=== PATIENT | female | born 1975 | race Caucasian/White ===

== ENCOUNTER → 2024-03-22 | Outpatient (CLI) | payer BC, MEDICAID, SELFPAY ==
--- NOTE | 2024-03-22 16:45 | XR_ITS ---
Examination: MRI brain without intravenous contrast. Date and time of exam: March 22, 2024 1750 hrs. Comparison December 25, 2018 Indications: Episodes of dizziness numbness in the left side of the body and voluntary movement 6 years worse this month Technique: Multiple axial and sagittal images of the brain obtained. Siemens high-resolution 1.5 Suzan short bore scanners utilized. Sagittal sections, T1-weighted, TR 500, TE 14, are performed. Axial sections proton-density and T2-weighted have been obtained. Inversion recovery axial images, TR 9, 260, TE 111, TI 2500. Diffusion weighted images, axial sections, TR 4800, TE 128, B value 1000 Axial sections, ADC map, TR 4800, TE 128 Findings: Enlargement of the sella turcica is not present. The optic chiasm and infundibular are not remarkable. Prepontine and interpeduncular cisterns are not enlarged. There is no localized enlargement of the medulla or alex. Fourth ventricle and cerebellar tonsils appear normal in position. No subacute area of hemorrhage density is seen. Mass in the cerebellopontine angle region is not evident. Globes symmetrical. Orbital musculature including medial lateral rectus muscles do not exhibit abnormality. Diffusion-weighted images demonstrate 3 mm focus restricted diffusion right cerebellar hemisphere diffusion image 7. Increased white matter signal again noted, scattered punctate foci increased signal including in the right cerebellar hemisphere and white matter frontal parietal lobes Mass effect upon the ventricular system is not identified. Impression: There remains punctate foci increased signal in the white matter consistent with demyelinating disease
== END | disposition home or self-care (01) ==
PROVIDERS: PCP Physician Assistant; Referring Provider Physician Assistant; Visit Provider Physician Assistant
DX: R90.82 White matter disease, unspecified (principal)
CPT/HCPCS: 70551

== ENCOUNTER 2024-09-13 13:15 | Outpatient (AMB) | payer BC, MEDICAID, SELFPAY ==
--- NOTE | 2024-09-13 13:22 | GYNCLNT_ITS ---
Vital Signs 09/13/24 13:30 Height 1.68 m Height Method Stated Weight 137.042 kg Weight Measurement Method Standing Scale BMI 48.7 BP 116/82 Blood Pressure Source Automatic Cuff Blood Pressure Location Right Upper Arm Position Sitting Respiration 18 Pulse 71 Pulse Source Monitor Temp 98.5 F Temp Source Temporal Artery Scan Pulse Oximetry (%) 96 Oxygen Delivery Method Room Air Allergies/Home Meds Allergies & Medications Allergies Sulfa (Sulfonamide Antibiotics) Allergy (Unknown, Verified 09/13/24 13:22) RASH Penicillins Adverse Reaction (Intermediate, Verified 09/13/24 13:22) UNABLE TO BREATH Medication Reconciliation inhalational spacing device (Aerochamber MV spacer) #1 ea 02/18/19 [Rx Confirmed 09/13/24] metoprolol succinate 100 mg tablet,extended release 24 hr 100 mg PO QDAY 08/21/20 [History Confirmed 09/13/24] amlodipine 10 mg tablet 10 mg PO QDAY 09/29/23 [History Confirmed 09/13/24] trimethoprim 100 mg tablet 100 mg PO QDAY 09/29/23 [History Confirmed 09/13/24] rivaroxaban 20 mg tablet (Xarelto) 20 mg PO QDAY 09/19/24 [History] Intake Visit Data Collection New Patient or Established: Established Patient (seen at [facility] within 3 years) Reason for Visit:: REF PERIMENOPAUSAL Seen by Clinical Staff ONLY (RN/MA): No [employer]ed [employer] Boards Laminator Required: No Do You Feel Safe at Home: Yes Authorities Contacted: N/A PCP or OBGYN visit in last 3 months: No Hx Now: No Last menstrual period: 05/23/24 Smoking Status 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 Menstrual regularity: regular Flow: normal Monthly: Yes How many days does period last: 6 Age at menarche: 11 Menopausal: No Currently sexually active: No If not currently sexually active, have you ever been sexually active: Yes 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 Patient most recently does have some type of neurological problem where she has left-sided numbness tingling they are working her up for MS. She is seeing specialist [facility] in [facility]. She has had several MRIs of her head and cervical neck region Questionnaires Covid-19 Vaccine Questionnaire Has patient been vacinated for Covid-19 Have you been vacinated for Covid-19: No PHQ-9 PHQ-2 Over the last 2 weeks, how often have you been bothered by any of the following problems? 1. Little interest or pleasure in doing things: not at all 2. Feeling down, depressed, or hopeless: not at all Total score: 0 PHQ-9 3. Trouble falling or staying asleep, or sleeping too much: Not at all 4. Feeling tired or having little energy: Not at all 5. Poor appetite or overeating: Not at all 6. Feeling bad about yourself - or that you are a failure or have let yourself or your family down: Not at all 7. Trouble concentrating on things, such as reading the newspaper or watching television: Not at all 8. Moving or speaking so slowly that other people could have noticed? - Or the opposite - being so fidgety or restless that you have been moving around a lot more than usual: not at all 9. Thoughts that you would be better off or of hurting yourself in some way: Not at all Total score: 0 If you checked off any problems, how difficult have these problems made it for you to do your work, take care of things at home, or get along with other people?: not difficult at all Source: Developed by Drs. Raymundo Armendariz, Jackleyn Sorenson, Johnie Andrew and colleagues, with an educational laura from [employer]. Depression screen completed yes Social History Living Situation History Marital Status: Lives With: Family Housing: House Housing Other:: Has 4 children. 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 She had 2 miscarriages, one of which required a D&C. She presents as a referral from [facility] to discuss hormone changes. The patient states she would like anything to make it easier . Upon further discussion with the patient, she has a lot of comorbid medical conditions which would put her at high risk for complications if we were to start traditional hormone replacement therapy. The patient has a history of a DVT and was diagnosed with protein S deficiency. She is on a blood thinner Xeralto for that. She also is in the process of being worked up for some type of neurological problem. The patient states she gets numb and tingly on one half of her body, on the left side. She actually has a drooping eye during this time and her eye does not track normally on the left side. She has a video that she showed me of this happening where her right eye is tracking normally and the left one is rolling around. Her neurological specialists are unsure whether this is some type of MS or atypical migraine. She is seeing a specialist in [facility]. She reports hot flashes, night sweats, and difficulty sleeping. She reports restless legs at night. We did discuss hormone therapy but I think the patient is quite high risk for this based on her other comorbid conditions. I did suggest [id number] medication for sleep. She could try some [id number]-[id number] medication for hot flashes. The patient stated she tried one of these and had some cramping and stopped taking it. I do not have any lab work on the patient. She does report weight gain, ringing in her ears, swelling of her legs, constipation, joint pain stiffness and swelling, breast pain, anxiety and depression, cold and heat intolerance, and frequent bruising. Her family history is significant for a maternal grandmother with breast cancer in her 50s a sister with melanoma and her father had lung cancer. Last menstrual period was 05/31/2024. Exam General General Appearance: alert, in no apparent distress, comfortable, cooperative, well groomed and obese Neck Neck exam: Present normal inspection, full ROM and trachea midline Chest Chest inspection: Present normal inspection and symmetric chest wall rise Resp Respiratory exam: Present normal lung sounds bilaterally Card Cardiovascular exam: Present regular rate, normal rhythm and normal heart sounds Abdominal Abdominal exam: Present soft and normal bowel sounds Extremities Extremities exam: Present normal inspection and full ROM Psych Psychiatric exam: Present normal affect and normal mood Skin Skin exam: Present warm, dry, intact and normal color Office Procedures OB Clinic LOC & Office Proc's Nursing/Assessment Patient Status: Established Patient OB Clinic Nursing Assessment: Medication Reconciliation, Update PMH in EMR and Vital Signs OB Clinic Coordination of Care: Complex Care and Chronic Disease 1-5, Consent,records obtained, informed consent, Education Simp Pt/Fam, Lab and Imaging orders and Staff clarify orders Established Patient Charge Established Patient Point Assignment: 100 Established Patient Point Charge: EP Level 3 (80-115) Assessment & Plan Diagnosis / Problem List (1) Morbid obesity with BMI of 45.0-49.9, adult: Status: Acute Assessment and Plan: Patient is a poor candidate for hormone replacement therapy. I recommended lifestyle changes and significant weight loss, and possibly medication through her primary care for restless leg syndrome. Recommended puty-fuh-[id number] medications to help with sleep. I did suggest antidepressants as sometimes these help with hot flashes and night sweats. The patient will have to get worked up thoroughly with her neurologist for her stroke like symptoms before considering any type of traditional hormone replacement therapy. The patient also has not had a Pap smear since 2008. She does need to schedule this with her primary care. She needs all lab work checked including thyroid as she has some symptoms that could be due to hypothyroidism. (2) Protein S deficiency: Status: Acute Assessment and Plan: The patient is on blood thinners. Again she is not a good candidate for hormone replacement therapy with a history of a DVT. (3) Chronic hypertension: Status: Acute Assessment and Plan: The patient is on two antihypertensives. Recommend close follow-up with her primary care. Patient's blood pressure needs to be managed well as she is having neurological symptoms that seem like TIA versus mini strokes by history. She needs to follow-up carefully with her neurological providers.
[2024-09-13 13:30] VITALS: BP 116/82; PULSE 71; RESP 18; TEMP 36.9; O2SAT 96; BMI 48.7
== END 2024-09-13 13:56 | disposition home or self-care (01) ==
PROVIDERS: PCP Physician Assistant; Referring Provider Physician Assistant; Supervising Provider Obstetrics & Gynecology; Visit Provider Obstetrics & Gynecology
DX: E66.01 Morbid (severe) obesity due to excess calories (principal); Z68.42 Body mass index [BMI] 45.0-49.9, adult; R23.2 Flushing; R61 Generalized hyperhidrosis; Z86.718 Personal history of other venous thrombosis and embolism; I10 Essential (primary) hypertension; D68.59 Other primary thrombophilia; Z88.2 Allergy status to sulfonamides
CPT/HCPCS: 99213; G0463